=== PATIENT | female | born 1950 | race Caucasian/White ===

== ENCOUNTER 2018-04-19 10:38 | Day surgery (SDC) | payer MEDICARE ==
[2018-04-19 11:15] VITALS: BP 129/87
[2018-04-19] MEDS ORDERED: Lidocaine 1% MPF wEPI 200,000* 30 ML SDV ONE (11:36)
[2018-04-19] MEDS ORDERED: Sodium Bicarbonate 8.4% SYR* 10 ML SYRINGE ONE (11:36)
[2018-04-19] MEDS ORDERED: Bupivacaine 0.25% SDV PF* 10 ML VIAL INJ ONE (15:08)
--- NOTE | 2018-04-20 13:02 | OP ---
DATE OF OPERATION: 04/19/18 - [facility] DATE OF : 46 SURGEON: Jeffrey Perez MD SUPERVISOR CUTTING AND SEWING ROOM: CHRIS Thorne ANESTHESIOLOGIST: None. ANESTHESIA: Local with 1% lidocaine with epinephrine and bicarbonate. PRE-OP DIAGNOSES: 1. Right thumb tendon sheath mass. 2. Right trigger thumb. POST-OP DIAGNOSES: 1. Right thumb tendon sheath mass. 2. Right trigger thumb. OPERATIVE PROCEDURE: 1. Excision of right thumb tendon sheath mass. 2. Right trigger thumb release of the A1 ag. INDICATIONS: Usman has a very symptomatic large nodule at the volar aspect of the right thumb A1 ag. She is having some trigger thumb symptoms. We talked about risks and benefits. She wanted to proceed. ESTIMATED BLOOD LOSS: 2 mL. COMPLICATIONS: None. FINDINGS: See above and below. DESCRIPTION OF PROCEDURE: Usman was seen in the preoperative holding area. The correct site, side, and procedure were identified. We came back to the operating room where the arm was prepped and draped in the usual fashion. A time-out was performed. I had infiltrated the operative area with a local anesthetic. I then made a 1-cm transverse incision over the right thumb, in the right thumb MP joint flexion crease. Full-thickness flaps were raised. The nodule on the volar aspect of the A1 ag was visualized. Ragnell retractors were placed. The nodule was excised via marginal excision and handed off as a specimen. The A1 ag was then incised longitudinally until it was released in its entirety. It was very thick and degenerative. Once the tendon was freed up, then the nodule was excised. I irrigated out the wounds. Skin was closed with 4-0 nylon suture. The wound was dressed and she was taken to the recovery room in stable condition. [id number]/[facility] #: [id number] MTDD
== END 2018-04-19 15:46 | disposition home or self-care (01) ==
LOC: OR 10:38
PROVIDERS: ATTEND Orthopaedic Surgery Hand Surgery
DX: M67.441 Ganglion, right hand (principal); M65.311 Trigger thumb, right thumb
CPT/HCPCS: 88304; J2001; J3490

== ENCOUNTER 2019-05-05 05:01 | Emergency (ER) | payer MEDICARE ==
[2019-05-05] MEDS ORDERED: NS 0.9% 1000 ML** 1,000 ML IV ONE ×2 (05:19→06:26)
[2019-05-05] MEDS ORDERED: Ondansetron INJ* 2 MG/ML VIAL IV ONE ×2 (05:19→06:26)
[2019-05-05] MEDS ORDERED: Pantoprazole IV* 40 MG IV ONE (05:19)
--- NOTE | 2019-05-05 05:47 | ED ---
Dizziness - HPI Summary HPI Summary: This patient is a 69 year old F presenting to [facility] by EMS with a chief complaint of dizziness, vomiting and diarrhea since this morning. Pt report she felt normal last night. Pt woke up this morning and went to the bathroom. Then she tried to go back to sleep but could not. So she went up to go drink water, when she began to feel extremely dizzy. Then she began to vomit and had diarrhea. Pt report pain in back of neck. Patient denies abdominal pain. - History Of Current Complaint Chief Complaint: EDDizziness Stated Complaint: NAUSEA/HEADACHE PER EMS Time Seen by Provider: 05/05/19 05:18 Hx Obtained From: Patient Onset/Duration: Still Present Timing: Minutes Severity Initially: Severe Severity Currently: Moderate Character: Dizzy Aggravating Factor(s): Exertion Alleviating Factor(s): Nothing Associated Signs And Symptoms: Positive: Nausea, Vomiting, Diarrhea, Inability to Walk - Allergies/Home Medications Allergies/Adverse Reactions: Allergies Allergy/AdvReac Type Severity Reaction Status Date / Time Penicillins Allergy Rash Verified 05/05/19 05:29 sulfasalazine Allergy Rash Verified 05/05/19 05:29 [From Azulfidine] hydrocodone [From Vicodin] AdvReac Nausea Verified 05/05/19 05:29 PMH/Surg Hx/FS Hx/Imm Hx Musculoskeletal History: Denies: Hx Osteoporosis EENT History: Denies: Hx Deafness - Cancer History Hx Chemotherapy: No Hx Radiation Therapy: No - Surgical History Surgery Procedure, Year, and Place: LUMPECTOMY RIGHT BREAST - CANCER 2003; RT WRIST; BI-LAT BREAST Bx Infectious Disease History: No Infectious Disease History: Denies: Traveled Outside the [place] in Last 30 Days - Family History Known Family History: Positive: Hypertension - Social History Alcohol Use: None Substance Use Type: Reports: None Hx Tobacco Use: No Smoking Status (MU): Never Smoked Tobacco - Additional Comments History Additional Comments: Home Medications Medication Instructions Recorded Confirmed Type Cyclosporine 0.05% OPHTH (NF) 1 drop BOTH EYES DAILY 08/21/14 12/08/17 History [Restasis 0.05% OPHTH] Loratadine [Claritin] 10 mg PO DAILY 12/02/17 12/08/17 History Calcium Carbonate/Vitamin D3 [Kp 1 cap PO 12/08/17 History Calcium 600+D3 600-500 mg-Unit] Inulin/Sorbitol [Fiber Choice 12/08/17 History Chewable Tablet] Garrison-3 Fatty Acids/Fish Oil [Fish 1 each PO 12/08/17 History Oil 1,000 mg Capsule] Lutein 15 mg Softgel 04/19/18 History Bkwws-Nttjhwo-Ioxskbjy Tablet 04/19/18 History Review of Systems Positive: Vomiting, Diarrhea, Nausea. Negative: Abdominal Pain Positive: Other - pain in back of neck Neurological: Other - Dizziness All Other Systems Reviewed And Are Negative: Yes Physical Exam - Summary Physical Exam Summary: General: Well-developed, Well-nourished FEMALE. No acute distress. Keeps eyes closed during history and physical. HEENT: Normocephalic, Atraumatic. Eyes: Conjuctiva normal, PERRL. pupils are nml, no nystagmus, Ears: TMs within normal limits. Nares: (-) discharge, (-) erythema. Oropharynx: Clear, mucous membranes dry, (-) exudates. Neck: Soft, FROM, (-) lymphadenopathy, (-) thyromegaly, (-) JVD. Cardiovascular: Normal sinus rhythm, (-) murmur. Lungs: Clear to auscultation bilaterally (-) wheezes, (-) rales, (-) rhonchi. Abdomen: Soft, non-tender, non-distended, (-) organomegaly, normal bowel sounds. Back: (-) CVA tenderness Extremities: No edema. Skin: Warm, dry, (-) rash. Triage Information Reviewed: Yes Vital Signs On Initial Exam: Initial Vitals Temp Pulse Resp BP Pulse Ox 97.6 F 68 16 150/85 99 05/05/19 05:05 05/05/19 05:05 05/05/19 05:05 05/05/19 05:05 05/05/19 05:05 Vital Signs Reviewed: Yes Procedures - Sedation Patient Received Moderate/Deep Sedation with Procedure: No Diagnostics - Vital Signs Vital Signs Temp Pulse Resp BP Pulse Ox 05/05/19 05:08 68 99 05/05/19 05:07 68 150/85 99 05/05/19 05:05 97.6 F 68 16 150/85 99 - Laboratory Result Diagrams: 05/05/19 05:40 05/05/19 05:40 Lab Statement: Any lab studies that have been ordered have been reviewed, and results considered in the medical decision making process. Re-Evaluation - Re-Evaluation First Eval Re-Evaluation Time: 06:27 Comment: Pt is still dizzy, and nauseated; more meds ordered. Dizzy Course/Dx - Course Course Of Treatment: This patient is a 69 year old F presenting to [facility] by EMS with a chief complaint of dizziness, vomiting and diarrhea since this morning. Pt report she felt normal last night. Pt woke up this morning and went to the bathroom. Then she tried to go back to sleep but could not. So she went up to go drink water, when she began to feel extremely dizzy. Then she began to vomit and had diarrhea. Pt report pain in back of neck. Patient denies abdominal pain. Pt keeps eyes closed during history and physical, pupils are nml, no nystagmus, oraphanx has dry mucus membranes. Blood work obtained. MCH is 32, BUN/Creatinine Ratio is 22.4, Glucose is 121. UA obtained. In the ED course the patient was given Zofran, protonix, and fluids. Patient is a sign out to Dr. Angel at 0700 on 05/05/19. Pending improvement of symptoms. - Diagnoses Provider Diagnoses: Vomiting and diarrhea Discharge ED - Sign-Out/Discharge Documenting (check all that apply): Sign-Out Patient Signing out patient TO: Franco Angel - Patient is a sign out to Dr. Angel at 0700 on 05/05/19. - Discharge Plan Referrals: Stephanie Urbina MD [Primary Care Provider] - - Attestation Statements Document Initiated by Tanner: Yes Documenting Jasielibrosanna: Bianca Huitron Provider For Whom Tanner is Documenting (Include Credential): Landy Crespo MD Scribe Attestation: I, Bianca Huitron, scribed for Landy Crespo MD on 05/05/19 at 0647. Scribe Documentation Reviewed: Yes Provider Attestation: The documentation as recorded by the Bianca muir accurately reflects the service I personally performed and the decisions made by me, Landy Crespo MD Status of Scribe Document: Viewed
[2019-05-05 06:14] LABS: INR 1.03 (0.82-1.09)
[2019-05-05 06:21] LABS: ABS Eosinophils 0.1 10^3/ul (0-0.6); ABS Lymphocytes 0.9 10^3/ul (1.0-4.8); ABS Monocytes 0.3 10^3/ul (0-0.8); Albumin 3.8 g/dL (3.2-5.2); Albumin/Globulin Ratio 1.2 (1-3); BUN/Creatinine Ratio 22.4 (8-20); Calcium 9.5 mg/dL (8.6-10.3); EGFR African American 79.8 (>60); EGFR Non-African American 65.9 (>60); Eosinophil % 1.5 %; Globulin 3.3 g/dL (2-4); Hematocrit 36 % (35-47); Hemoglobin 12.5 g/dL (12.0-16.0); Mean Corpuscular HGB Conc 34 g/dL (31-36); Mean Corpuscular Hemoglobin 32 pg (27-31); Mean Corpuscular Volume 92 fL (80-97); Mean Platelet Volume 7.7 fL (7.4-10.4); Nucleated Red Blood Cells % 0.1; Platelet Count 214 10^3/uL (150-450); Potassium 3.5 mmol/L (3.5-5.0); Red Blood Count 3.93 10^6 /uL (3.70-4.87); Red Cell Distribution Width 13 % (10-15); Total Bilirubin 0.7 mg/dL (0.2-1.0); Total Protein 7.1 g/dL (6.4-8.9); White Blood Count 5.3 10^3/uL (3.5-10.8)
[2019-05-05] MEDS ORDERED: Metoclopramide IV* 5 MG/ML 2 ML VIAL IV SLOW PU ONE (07:12)
[2019-05-05] MEDS ORDERED: diazePAM INJ* 5 MG/ML 2ML SYRINGE IV ONE (07:12)
--- NOTE | 2019-05-05 07:24 | ED ---
Progress - Progress Note Progress Note: The patient is a sign-out from Dr. Landy Crespo MD, to Dr. Franco Angel MD, at change of shift at 0700 on 05/05/2019, pending improvement in symptoms and disposition. She is given Reglan for nausea and Diazepam for dizziness. 0815 - patient's O2 saturation dropped to 81% while asleep, nurse Hoang woke her up and O2 increased to 100% 0915 - patient's symptoms have improved, she is clear for discharge Re-Evaluation - Re-Evaluation First Eval Re-Evaluation Time: 08:15 Change: Unchanged Comment: O2 sat is 81%, improved to 100% with waking up Second Eval Re-Evaluation Time: 09:15 Change: Improved Comment: She is feeling better after medications. We discussed all results and plan for discharge home. Course/Dx - Course Course Of Treatment: The patient is a sign-out from Dr. Landy Crespo MD, to Dr. Franco Angel MD, at change of shift at 0700 on 05/05/2019, pending improvement in symptoms and disposition. Dr. Crespo reports that the patient came complaining of nausea vomiting diarrhea and dizziness. Blood work was from without any significant abnormality. She recommended hydrating the patient and reassessing with discharge home when she feels better. I reassessed the patient , and she reports slight dizziness and slight nausea. Therefore, the patient was given Reglan and Valium. After an hour, the patient reports that shes better, and symptoms are resolved. The patient is able to tolerate water without any nausea vomiting. At this point, I discussed all the findings and test results with the patient. He was instructed to return to the emergency room immediately if any of the symptoms return or worsen. Patient understands and agrees. Neurological exam before discharge: Patient is alert and oriented x 3. No acute neurological deficits. Patient's vital signs are stable. Patient is to follow up with [facility]PP in the next 2 3 days. They understand and agree. Plan of care was discussed with the patient and patient understands and agrees with the plan of care. All questions were answered at patient satisfaction. There were no further complaints or concerns. - Diagnoses Provider Diagnoses: Vomiting and diarrhea, Nausea, Vertigo Discharge ED - Sign-Out/Discharge Documenting (check all that apply): Patient Departure - Patient will be discharged home., Receiving Sign-Out Receiving patient FROM: Landy Crespo - Patient is a sign-out from Dr. Landy Crespo MD, at 0700 on 05/05/2019, pending improvement in symptoms and disposition. - Discharge Plan Condition: Stable Disposition: HOME Patient Education Materials: Vertigo (DC), Acute Nausea and Vomiting (ED), Acute Diarrhea (ED) Referrals: Stephanie Urbina MD [Primary Care Provider] - 3 Days Additional Instructions: Follow up with your primary care provider in 2-3 days. Return to the emergency department for any new or worsening symptoms. - Billing Disposition and Condition Condition: STABLE Disposition: Home - Attestation Statements Document Initiated by Scribe: Yes Documenting Scribe: Trixie Hernandez Provider For Whom Tanner is Documenting (Include Credential): Dr. Franco Angel MD Scribe Attestation: Trixie Walker, scribed for Dr. Franco Angel MD on 05/05/19 at 0923. Scribe Documentation Reviewed: Yes Provider Attestation: The documentation as recorded by the Trixie muir accurately reflects the service I personally performed and the decisions made by me, Dr. Franco Angel MD Status of Scribe Document: Ready Procedures - Sedation Patient Received Moderate/Deep Sedation with Procedure: No
--- OUTSIDE RECORDS SUMMARY | 2019-05-05 08:29 | XMS REPORT | Continuity of Care Document ---
:1950 External Reference #:[id number] Author Name Robert Stewart MD Address [address] [place] [address] Problems Description No Information Available Social History Type Date Description Comments Sex Unknown Tobacco Use Start: Unknown Never Smoked Cigarettes Tobacco Use Start: Unknown Never Smoked Cigars Tobacco Use Start: Unknown Never Smoked A Pipe Smokeless Tobacco Never Used Smokeless Tobacco ETOH Use Denies alcohol use Tobacco Use Start: Unknown Patient has never smoked Smoking Status Reviewed: 03/31/19 Patient has never smoked Allergies, Adverse Reactions, Alerts Active Allergies Reaction Severity Comments Date Azulfidine 03/31/2019 Doxycycline nausea 03/31/2019 Vicodin nausea 03/31/2019 Penicillin 03/31/2019 Medications Active Medications SIG Qnty Indications Ordering Provider Date Restasis as directed Unknown 0.05% Emulsion Clobetasol Propionate as directed Unknown 0.05% Cream Tacrolimus as directed Unknown 0.1% Ointment Claritin as directed Unknown 10mg Tablets Miralax as directed Unknown 3350NF Packet Womens Multi take as directed Unknown Capsules Calcium as directed Unknown Vitamin D3 as directed Unknown 1000Unit Tablets Icaps Areds 2 as directed Unknown 2 Capsules B Complex as directed Unknown Tablets Fish Oil as directed Unknown 1000mg Capsules Acid Communication Analyst as directed Unknown 150mg Tablets Turmeric take once daily Unknown 500mg Capsules Medications Administered in Office Medication SIG Qnty Indications Ordering Provider Date Allergen Specifig IgE Osman Mckeon M.D. 12/10/1999 Injection Immunizations Description No Information Available Vital Signs Date Vital Result Comment 03/31/2019 1:53pm Weight 128.00 lb Weight 58.061 kg Height 63 inches 5'3" Height in cm's 160.0 cm BMI (Body Mass Index) 22.7 kg/m2 Results Description No Information Available Procedures Description No Information Available Medical Devices Description No Information Available Encounters Type Date Location Provider Dx Diagnosis Office Visit 03/31/2019 Jez No M26.602 Left temporomandibular 1:30p 07/27/07 MD Pat joint disorder, unspecified Assessments Date Code Description Provider 03/31/2019 M26.602 Left temporomandibular joint disorder, Robert Stewart MD unspecified Plan of Treatment No Information Available Functional Status Description No Information Available Mental Status Description No Information Available Referrals Description No Information Available
--- OUTSIDE RECORDS SUMMARY | 2019-05-05 08:29 | XMS REPORT | Continuity of Care Document ---
:1950 External Reference #:[id number] Author Name David Ibanez M.D. Address [address] 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 Onset: 2016 degeneration Nonexudative age-related macular degeneration Maikel Montero O.D. Onset: Dr[place] of optic disc Maikel Montero O.D. Onset: 10/18/2014 Conjunctival hemorrhage Maikel Montero O.D. Onset: 11/15/2013 Presbyopia Maikel Montero O.D. Onset: 10/18/2013 Regular astigmatism Maikel Montero O.D. Onset: 10/18/2013 Myopia Maikel Montero O.D. Onset: 10/18/2013 Vitreous degeneration Maikel Montero O.D. Onset: 10/18/2013 Nuclear senile cataract Maikel Montero O.D. Onset: 10/18/2013 Tear film insufficiency Maikel Montero O.D. Onset: 10/18/2013 Social History Type Date Description Comments Sex Unknown ETOH Use Denies alcohol use Tobacco Use Start: Unknown Patient has never smoked Smoking Status Reviewed: 04/27/19 Patient has never smoked Allergies, Adverse Reactions, Alerts Active Allergies Reaction Severity Comments Date Penicillin 10/18/2013 Azulfidine 10/18/2013 Medications Active Medications SIG Qnty Indications Ordering Date Provider Restasis 1 drops both eyes 180units Maikel Verdin, 02/10/2019 0.05% Emulsion twice a day OD Refresh Optive 1 drops both eyes 2ml 372.72 Maikel Montero, 11/15/2013 0.5-0.9% twice a day O.D. Solution Claritin Unknown 10mg Tablets Clobetasol Propionate Unknown 0.05% Ointment Triamcinolone Apply Once Daily Unknown Acetonide To Active Rash 0.1% Cream Itching Until Resolved On Lower Legs Clobetasol Propionate Apply Sparingly Unknown To Affected Area 0.05% Ointment Twice Daily For 2 Weeks Then 1 Week Off as Needed Vitamin D3 Complete Unknown Tablets Preservision Areds 2 1 by mouth twice Unknown a day Areds 2 Capsules Immunizations Description No Information Available Vital Signs Date Vital Result Comment 10/25/2018 11:27am Intraocular Pressure Right Eye 16 mmHg Intraocular Pressure Left Eye 16 mmHg 10/15/2017 11:21am Intraocular Pressure Right Eye 17 mmHg Intraocular Pressure Left Eye 17 mmHg Results Description No Information Available Procedures Date Code Description Status 04/28/2019 00023 Oct Retina Completed 04/28/2019 98410 Eye Exam Est Intermediate Completed Medical Devices Description No Information Available Encounters Description No Information Available Assessments Date Code Description Provider 04/28/2019 H35.3131 Nonexudative age-related macular David Ibanez M.D. degeneration, bilateral, ea 04/28/2019 H04.123 Dry eye syndrome of bilateral lacrimal David Ibanez M.D. glands Plan of Treatment 04/28/2019 - David Ibanez M.D.H35.3131 Nonexudative age-related macular degeneration, bilateral, eaH04.123 Dry eye syndrome of bilateral lacrimal glandsFollow up:6 mos full Functional Status Description No Information Available Mental Status Description No Information Available Referrals Description No Information Available
--- OUTSIDE RECORDS SUMMARY | 2019-05-05 08:29 | XMS REPORT | Continuity of Care Document ---
:1950 External Reference #:[id number] Author Name Jeovany Muller Address [address] [facility], [place] [address] Care Team Providers Name Role Phone Ashwin Sutton MD - Dermatology Care Team Information Professor Of Business Problems Active Problems Provider Date Body mass index 20-24 - normal Jeovany Muller Onset: 04/14/2019 Localized, primary osteoarthritis Jeovany Muller Onset: 05/26/2017 Pain in left lower limb Jeovany Muller Onset: 05/26/2017 Pain in right lower limb Jeovany Muller Onset: 05/26/2017 Social History Type Date Description Comments Sex Unknown Tobacco Use Start: Unknown Patient has never smoked Smoking Status Reviewed: 10/19/18 Patient has never smoked Allergies, Adverse Reactions, Alerts Active Allergies Reaction Severity Comments Date Azulfidine Hives 05/26/2017 Penicillin unsure-possible reaction 05/26/2017 Doxycycline Nausea 05/26/2017 Vicodin Nausea 03/08/2019 Medications Active Medications SIG Qnty Indications Ordering Provider Date Restasis daily Unknown 0.05% Emulsion Claritin po prn Unknown 10mg Capsules Fish Oil 1000mg po qd Unknown Capsules Multivitamin Adult Unknown Tablets B Complex po qd Unknown Capsules Calcium 630 mg calcium Unknown Tab 500 iu vitamin d Fiber Choice Unknown 1.5gm Chewtabs Clobetasol Propionate as needed Unknown 0.05% Ointment Triamcinolone Acetonide apply as directed Unknown 0.1% Cream Tacrolimus Unknown 0.5mg Capsules Icaps Areds 2 po qd Unknown 2 Capsules Vitamin D-3 po qd Unknown 1000Unit Capsules Immunizations CPT Code Status Date Vaccine Lot # [id number] Given 12/25/2015 Pneumococcal Vaccine Vital Signs Date Vital Result Comment 04/14/2019 3:27pm Height 62 inches 5'2" Weight 126.00 lb BP Systolic 122 mmHg BP Diastolic 75 mmHg BMI (Body Mass Index) 23.0 kg/m2 Heart Rate 91 /min Respiratory Rate 18 /min Pain Level 2 out of 10 03/08/2019 2:15pm Height 62 inches 5'2" Weight 124.00 lb BP Systolic 135 mmHg BP Diastolic 73 mmHg BMI (Body Mass Index) 22.7 kg/m2 Heart Rate 85 /min Respiratory Rate 18 /min Pain Level 2 out of 10 Results Test Date Facility Test Result H/L Range Note Xray 03/25/2019 [facility] ([facility] [place] Ultrasound Carotic <pending> [address] [place] [address] [phone] Procedures Date Code Description Status 03/08/2019 68920 Duplex Scan Extremity Veins Complete Bilateral Completed Medical Devices Description No Information Available Encounters Type Date Location Provider Dx Diagnosis Office Visit 03/08/2019 [facility] Jeovany Muller M17.12 Unilateral primary 2:00p osteoarthritis, left knee M79.604 Pain in right leg M79.605 Pain in left leg Z68.22 Body mass index (BMI) 22.0-22.9, adult Assessments Date Code Description Provider 04/14/2019 I65.23 Occlusion and stenosis of bilateral carotid Jeovany Muller arteries 04/14/2019 Z68.23 Body mass index (BMI) 23.0-23.9, adult Jeovany Muller 03/08/2019 M17.12 Unilateral primary osteoarthritis, left knee Jeovany Muller 03/08/2019 M79.604 Pain in right leg Jeovany Muller 03/08/2019 M79.605 Pain in left leg Muller, Jeovany 03/08/2019 Z68.22 Body mass index (BMI) 22.0-22.9, adult Jeovany Muller Plan of Treatment No Information Available Functional Status Description No Information Available Mental Status Description No Information Available Referrals Refer to Reason for Referral Status Appt Date Jeovany Muller M.D. Closed 03/30/[address] [place] [address] [address] [place] [address] [phone]
--- OUTSIDE RECORDS SUMMARY | 2019-05-05 08:29 | XMS REPORT | Continuity of Care Document ---
:1950 External Reference #:[id number] Author Name Jeovany Muller (transmitted by agent of provider Kelly Dc) Address [address] [facility], [place] [address] Care Team Providers Name Role Phone Ashwin Sutton MD - Dermatology Care Team Information Packer [phone] Problems Active Problems Provider Date Body mass index 20-24 - normal Jeovany Muller Onset: 04/14/2019 Localized, primary osteoarthritis MullerJeovany connors Onset: 05/26/2017 Pain in left lower limb [...] CPT Code Status Date Vaccine Lot # [id number] Given 12/25/2015 Pneumococcal Vaccine Vital Signs Date [...] Test Result H/L Range Note Xray 03/25/2019 [facility] ([facility] [place]ound Carotic <pending> [address] [place] [address] [phone] Procedures Date Code Description Status 03/08/2019 17143 Duplex Scan Extremity Veins Complete Bilateral Completed Medical Devices Description No Information Available Encounters Type Date Location Provider Dx Diagnosis Office Visit 03/08/2019 [facility] MullerJeovany M17.12 Unilateral primary 2:00p osteoarthritis, left knee M79.604 Pain in right leg M79.605 Pain in left leg Z68.22 Body mass index (BMI) 22.0-22.9, adult Assessments Date Code Description Provider 04/14/2019 M79.605 Pain in left leg Muller, Jeovany 04/14/2019 M79.604 Pain in right leg Muller, Jeovany 04/14/2019 Z68.23 Body mass index (BMI) 23.0-23.9, adult Muller, Jeovany 03/08/2019 M17.12 Unilateral primary osteoarthritis, left knee Muller, Jeovany 03/08/2019 M79.604 Pain in right leg Muller, Jeovany 03/08/2019 M79.605 Pain in left leg Muller, Jeovany 03/08/2019 Z68.22 Body mass index (BMI) 22.0-22.9, adult Jeovany Muller Plan of Treatment No Information Available Functional Status Description No Information Available Mental Status Description No Information Available Referrals Refer to Reason for Referral Status Appt Date Jeovany Muller M.D. Closed 03/30/[address] [facility] [address] [facility] [place] [address] [phone]
[2019-05-05 10:51] VITALS: BP 144/74
== END 2019-05-05 10:00 | disposition home or self-care (01) ==
LOC: ED 05:01
DX: R42 Dizziness and giddiness (principal); R11.2 Nausea with vomiting, unspecified; R19.7 Diarrhea, unspecified; Z85.3 Personal history of malignant neoplasm of breast; Z79.899 Other long term (current) drug therapy; Z88.5 Allergy status to narcotic agent; Z88.0 Allergy status to penicillin; Z88.2 Allergy status to sulfonamides
CPT/HCPCS: 36415; 70450; 80053; 82150; 83605; 83690; 85025; 85610; 96361; 96374; 96375; 96376; 99282; J2405; J2765; J3360